=== PATIENT | female | born 1995 | race Caucasian/White ===

== ENCOUNTER 2018-08-06 17:40 | Emergency (ER) | payer BC ==
--- NOTE | 2018-08-06 18:41 | ER Document Report ---
ED ENT - General Chief Complaint: Ear Pain Stated Complaint: EAR PAIN/SORE THROAT Time Seen by Provider: 08/06/18 17:57 Primary Care Provider: JACEK BUTT MD [ACTIVE STAFF] - Follow up as needed Notes: 22-year-old female presented to ED for complaint of cough cold congestion ear pain to the left ear where she has an infected hearing and sore throat. She states that most of his symptoms started last night but it got much worse during the day. She states she took the earring out of her ear yesterday in the ear continued to swell and has been oozing pus. She states she has been squeezed the ear several times and it is just gotten bigger. She is alert and oriented respirations regular and unlabored speaking in full sentences with gait. TRAVEL OUTSIDE OF THE [place] IN LAST 30 DAYS: No - HPI Patient complains to provider of: Ear problem - Infected earrings to the upper outer ear, Throat problem - Sore throat Onset: Yesterday Onset/Duration: Gradual Quality of pain: Sharp, Stabbing Severity: Moderate Pain Level: 4 Context: Recent Illness Location of pain: Ears - Left upper outer ear due to an earring infection Associated symptoms: Ear pain - Infected ear ring, Runny nose, Sinus pain, Sore throat - Related Data Allergies/Adverse Reactions: acetaminophen [From Vicodin] Allergy (Verified 08/06/18 17:44) hydrocodone [From Vicodin] Allergy (Verified 08/06/18 17:44) Past Medical History - General Information source: Patient - Social History Smoking Status: Former Smoker Frequency of alcohol use: Social Drug Abuse: None Lives with: Alone Family History: None Patient has suicidal ideation: No Patient has homicidal ideation: No - Past Medical History Cardiac Medical History: Reports: None Pulmonary Medical History: Reports: Other - Bronchospasms as a child EENT Medical History: Reports: None Neurological Medical History: Reports: None Endocrine Medical History: Reports: None Renal/ Medical History: Reports: None Malignancy Medical History: Reports: None GI Medical History: Reports: None Musculoskeletal Medical History: Reports None Skin Medical History: Reports None Psychiatric Medical History: Reports: Other - A lot of stress Traumatic Medical History: Reports: None Infectious Medical History: Reports: None, Other - Shingles mono chickenpox Past Surgical History: Reports: Hx Adenoidectomy, Hx Appendectomy, Hx Cholecystectomy, Hx Tonsillectomy - Immunizations Immunizations up to date: Yes Review of Systems - Review of Systems Constitutional: No symptoms reported EENT: Ear pain - Infected swollen outer ear due to infected ear ring, Nose congestion, Throat pain Cardiovascular: No symptoms reported Respiratory: No symptoms reported Gastrointestinal: No symptoms reported Genitourinary: No symptoms reported Female Genitourinary: No symptoms reported Musculoskeletal: No symptoms reported Skin: Other - Red inflamed infected left ear due to ear ring Hematologic/Lymphatic: No symptoms reported Neurological/Psychological: No symptoms reported -: Yes All other systems reviewed and negative Physical Exam - Vital signs Vitals: Temp Pulse Resp BP Pulse Ox 98.3 F 86 20 139/82 H 100 08/06/18 17:53 08/06/18 17:53 08/06/18 17:53 08/06/18 17:53 08/06/18 17:53 Interpretation: Normal - General General appearance: Appears well, Alert - HEENT Head: Normocephalic, Atraumatic Eyes: Normal Pupils: PERRL Ears: Pinna tenderness, Tragus tenderness, Other - Erythematous inflamed abscess to the upper outer cartilage from infected ear ring External canal: Normal Tympanic membrane: Normal Sinus: Normal Nasal: Swelling, Clear rhinorrhea Mouth/Lips: Normal Mucous membranes: Normal Pharynx: Erythema, Post nasal drainage, Tonsillar hypertrophy. No: Exudate Neck: Anterior cervical chain, Posterior cervical chain - Respiratory Respiratory status: No respiratory distress Chest status: Nontender Breath sounds: Normal Chest palpation: Normal - Cardiovascular Rhythm: Regular Heart sounds: Normal auscultation Murmur: No - Abdominal Inspection: Normal Distension: No distension Bowel sounds: Normal Tenderness: Nontender Organomegaly: No organomegaly - Back Back: Normal, Nontender - Extremities General upper extremity: Normal inspection, Nontender, Normal color, Normal ROM, Normal temperature General lower extremity: Normal inspection, Nontender, Normal color, Normal ROM, Normal temperature, Normal weight bearing. No: Irma's sign - Neurological Neuro grossly intact: Yes Cognition: Normal Orientation: AAOx4 [place] Coma Scale Eye Opening: Spontaneous [place] Coma Scale Verbal: Oriented [place] Coma Scale Motor: Obeys Commands [place] Coma Scale Total: 15 Speech: Normal Motor strength normal: LUE, RUE, LLE, RLE Sensory: Normal - Psychological Associated symptoms: Normal affect, Normal mood - Skin Skin Temperature: Warm Skin Moisture: Dry Skin Color: Normal Skin irregularity: Abscess Location of irregularity: Ears - Left upper outer ear due to ear ring infection Character of irregularity: Erythematous Irregularity with: Swelling, Tenderness, Inflammation Course - Vital Signs Vital signs: Temp Pulse Resp BP Pulse Ox 98.3 F 86 18 124/79 98 08/06/18 17:53 08/06/18 20:02 08/06/18 20:02 08/06/18 20:02 08/06/18 20:02 Procedures - Incision and Drainage Left upper outer ear Time completed: 18:40 Type: Simple Anesthetic type: Other mL's of anesthetic: 0 Blade size: Other - 18-gauge needle and scissors I&D procedure: Shurclens applied, Sterile dressing applied Incision Method: Incision made with needle Amount/type of drainage: Purulent drainage/blood moderate amount Discharge - Discharge Clinical Impression: infected ear ring site left ear, Strep sore throat Condition: Stable Disposition: HOME, SELF-CARE Additional Instructions: STREP THROAT: Your sore throat is due to the streptococcus germ (strep throat). Strep throat usually makes you feel quite ill with fever and aches, headache, swollen sore throat, and tender bumps under the angles of the jaw. Strep throat requires antibiotic treatment. Although the sore throat may go away by itself, complications such as rheumatic fever, kidney disease, or throat abscess can occur. We usually prescribe antibiotics by mouth. Be sure to take the medicine until it's gone. If you stop early, the strep may come back. If you are vomiting, are severely ill, or can't remember to take pills, we can give you an antibiotic shot. Take acetaminophen or ibuprofen for pain and fever. Sip frequent clear liquids, or use popsicles or ice chips. Anesthetic sprays or lozenges may help. Make sure the air in the room is not too dry. Avoid using decongestants or antihistamines. Call the doctor if there is no improvement in three days, or if you have difficulty breathing, increasing throat pain, high fever, rash, or frequent vomiting. ABSCESS: You have an abscess (boil). This a pus-forming infection, usually due to staph. Some boils may be left to drain on their own, but most require lancing. From the time the tender lump first appears, it may be three or four days before the abscess is ready to rohit. Local heat and rest help at this stage of treatment. An antibiotic may prevent spread of the infection. Once the abscess is opened, packing may be placed into it. This is done so pus is not sealed inside by premature closure of the cavity. The packing will be removed at your follow-up visit or you may be advised to remove it yourself at home. Sometimes this packing must be replaced a few times during healing. The wound will heal with surprisingly little scar. Depending on the size and location of an abscess, healing can take one to four weeks. You may shower and wash the area around the incision site two or three times a day. Antibiotics may be prescribed, but are usually not necessary after an abscess has been drained. If you develop fever, chills, worsening pain, or increasing swelling in the area, call the doctor or return immediately. POST INCISION AND DRAINAGE: You have had an incision made to allow drainage of an abscess. The incision must remain open so that pus and debris can drain from the wound. Keep a bulky dressing over the area. Replace it if it becomes saturated with blood or pus. Do not disturb the packing (if present). You may shower and cleanse the area with gentle soap and warm water two or three times a day. Local warmth may be soothing, and may promote faster healing. Return if you develop high fever or chills, or if you note spreading redness, increasing swelling, or increasing tenderness. CEPHALEXIN: The antibiotic you've been prescribed is a member of the cephalosporin class. This type of antibiotic covers a wide variety of infections, including those of the skin, lungs, and urinary tract. It's useful for staph infections. This antibiotic is slightly similar to the penicillin family. In rare cases, a person who is allergic to penicillin will also be allergic to this medication. If you have had a severe allergic reaction to penicillin, and have not taken this antibiotic since that time, notify your doctor. Antibiotics which cover many germs ("broad spectrum" antibiotics) are more likely to cause diarrhea or "yeast" infections. Women prone to vaginal yeast problems may suffer an attack after taking this antibiotic. In infants, oral thrush (white spots "stuck" on the cheek) or yeast diaper rash may result. See your doctor if these problems occur. Call at once if you develop itching, hives, shortness of breath, or lightheadedness. TRIMETHOPRIM-SULFA: You have been given a prescription for trimethoprim-sulfa (TMS, Septra, Bactrim). This is a combination antibiotic of the sulfa class, often used for urinary tract infections, middle ear infections, bronchitis, shigella intestinal infection, and Pneumocystis pneumonia. TMS is usually well-tolerated. Occasional side effects include nausea and decreased appetite. Septra is not recommended for infants less than two months of age. Do not take this medication if you have experienced severe side effects or allergy to sulfa medicine. You should stop this medicine at once and contact your physician if you develop any rash, joint pain, shortness of breath, bruising, or jaundice (yellow color in the skin), or if you develop any other new or unusual symptoms. Please be sure to take your antibiotics until they are completed. Infected wound to your left ear please do not put any earrings back in this year and to your wounds are completely healed. Please irrigate this earring site tonight before you go to bed, tomorrow morning when you get up, tomorrow night before you go to bed, and the next morning. Please wash the site frequently. Please dressed with bacitracin and gauze and paper tape to ensure that the site continues to drain. Is follow-up with your primary doctor in 24-48 hours to ensure this site is healing properly. Antibiotics have given you for the infected ear will also take care of your strep throat. Try gargling with warm salt and soda solution and use Chloraseptic spray for the discomfort of your throat. FOLLOW-UP CARE: If you have been referred to a physician for follow-up care, call the physicians office for an appointment as you were instructed or within the next two days. If you experience worsening or a significant change in your symptoms, notify the physician immediately or return to the Emergency Department at any time for re-evaluation. Prescriptions: Cephalexin Monohydrate [Keflex 500 mg Capsule] 500 mg PO QID #20 capsule Sulfamethoxazole/Trimethoprim [Bactrim Ds Tablet] 1 each PO BID #20 tablet Forms: Elevated Blood Pressure Referrals: JACEK BUTT MD [ACTIVE STAFF] - Follow up as needed
[2018-08-06] MEDS ORDERED: SULFAMETHOXAZOLE/TRIMETHOPRIM 800-160 MG TABLET PO ONE (18:56)
[2018-08-06] MEDS ORDERED: CEPHALEXIN 500 MG CAPSULE PO ONE (18:56)
[2018-08-06 20:03] VITALS: BP 124/79
== END 2018-08-06 19:59 | disposition home or self-care (01) ==
LOC: ER 17:40
DX: H60.02 Abscess of left external ear (principal); J02.0 Streptococcal pharyngitis; J34.89 Other specified disorders of nose and nasal sinuses; R09.81 Nasal congestion; R09.82 Postnasal drip; Z88.6 Allergy status to analgesic agent; Z88.5 Allergy status to narcotic agent; Z87.891 Personal history of nicotine dependence
CPT/HCPCS: 87070; 87075; 87077; 87205; 87880; 99283

== ENCOUNTER → 2018-10-01 | Outpatient (CLI) | payer BC ==
--- NOTE | 2018-10-02 09:14 | RADIOLOGY REPORT (SQ) ---
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 TECHNIQUE: Multiplanar imaging includes noncontrasted T1, T2, FLAIR, diffusion with ADC map and post gadolinium contrast T1 sequences. Additional thin section coronal and sagittal T2, coronal and sagittal T1 pre and post contrasted imag es through the pituitary fossa. Images stored on PACS. CONTRAST TYPE AND DOSE: 20 mL Dotarem. RENAL FUNCTION: Not indicated. ACR Type II contrast agent associated with few, if any, unconfounded cases of NSF LIMITATIONS: None. FINDINGS: PITUITARY FOSSA: The pituitary gland is normal in size, 13 mm AP x 14 mm transverse by 7 m m craniocaudad. Midline infundibulum. Normal posterior pituitary bright spot. No abnormal contrast enhancement. Normal cavernous sinuses and suprasellar cistern. Normal optic chiasm. CSF SPACES: Normal in size and contour. No hemorrhage. CEREBRUM: Sulci and gyri normal in size and contour. Normal white matter signal on FLAIR imaging. No evidence of hemorrhage, mass, or extraaxial fluid collection. No abnormal enhancement post contrast. POSTERIOR FOSSA: No signal alteration. No hemorrhage. No edema, masses, or mass effect. Internal jefry tory canals, cerebellopontine angles, mastoids normal. No enhancing lesions. No abnormal enhancement post contrast. DIFFUSION IMAGING: Negative for acute or subacute infarction. ORBITS: No masses. Globes normal. PARANASAL SINUSES: No fluid levels. Mucosa normal. OTHER: No other significant finding. IMPRESSION: NORMAL MRI OF THE BRAIN AND PITUITARY WITHOUT AND WITH INTRAVENOUS GADOLINIUM CONTRAST. EVIDENCE OF ACUTE STROKE: NO. TECHNICAL DOCUMENTATION: JOB ID: [id number]- All Rights Reserved Reading location - IP/workstation name: [email or web address]
== END ==
LOC: RAD 19:46
PROVIDERS: ATTEND Family Medicine
DX: E22.1 Hyperprolactinemia (principal)
CPT/HCPCS: 70553; A9576

== ENCOUNTER 2020-01-12 18:23 | Emergency (ER) | payer BC ==
[2020-01-12] MEDS ORDERED: ONDANSETRON HCL INJ/PF 4 MG/2 ML SDV IV ONE (19:06)
[2020-01-12] MEDS ORDERED: NORMAL SALINE 1000 ML 1,000 ML IV ONE (19:06)
--- NOTE | 2020-01-12 19:08 | ER Document Report ---
ED GI/ - General Chief Complaint: Vomiting Stated Complaint: COUGH,VOMITING Time Seen by Provider: 01/12/20 19:03 Primary Care Provider: DESHAUN HERNANDEZ DO [Primary Care Provider] - Follow up as needed Information source: Patient Notes: This a 24-year-old female presented to the emergency room today stating that she had had nausea vomiting for about 6 days she has not been able to hold anything down. She has mild upper abdominal cramping from the nausea discomfort. TRAVEL OUTSIDE OF THE [place] IN LAST 30 DAYS: No - HPI Patient complains to provider of: Vomiting Onset: Other - For 6 days Timing/Duration: Persistent, Waxing and waning Quality of pain: Achy Severity at maximum: Moderate - Related Data Allergies/Adverse Reactions: acetaminophen [From Vicodin] Allergy (Verified 08/06/18 17:44) hydrocodone [From Vicodin] Allergy (Verified 08/06/18 17:44) Past Medical History - General Information source: Patient - Social History Smoking Status: Never Smoker Cigarette use (# per day): No Frequency of alcohol use: None Drug Abuse: None Lives with: Family Family History: None Past Surgical History: Reports: Hx Adenoidectomy, Hx Appendectomy, Hx Cholecystectomy, Hx Tonsillectomy - Immunizations Immunizations up to date: Yes Review of Systems - Review of Systems Constitutional: No symptoms reported EENT: No symptoms reported Cardiovascular: No symptoms reported Respiratory: No symptoms reported Gastrointestinal: Other - Nausea vomiting Genitourinary: No symptoms reported Female Genitourinary: No symptoms reported Musculoskeletal: No symptoms reported Skin: No symptoms reported Hematologic/Lymphatic: No symptoms reported Neurological/Psychological: No symptoms reported Physical Exam - Vital signs Vitals: Temp Pulse Resp BP Pulse Ox 98.9 F 82 16 111/74 100 01/12/20 18:47 01/12/20 18:47 01/12/20 18:47 01/12/20 18:47 01/12/20 18:47 Interpretation: Normal - General General appearance: Appears well, Alert - HEENT Head: Normocephalic, Atraumatic Eyes: Normal Pupils: PERRL - Respiratory Respiratory status: No respiratory distress Chest status: Nontender Breath sounds: Normal Chest palpation: Normal - Cardiovascular Rhythm: Regular Heart sounds: Normal auscultation Murmur: No - Abdominal Inspection: Normal Distension: No distension Bowel sounds: Normal Tenderness: Nontender Organomegaly: No organomegaly - Back Back: Normal, Nontender - Extremities General upper extremity: Normal inspection, Nontender, Normal color, Normal ROM, Normal temperature General lower extremity: Normal inspection, Nontender, Normal color, Normal ROM, Normal temperature, Normal weight bearing. No: Irma's sign - Neurological Neuro grossly intact: Yes Cognition: Normal Orientation: AAOx4 [place] Coma Scale Eye Opening: Spontaneous [place] Coma Scale Verbal: Oriented [place] Coma Scale Motor: Obeys Commands [place] Coma Scale Total: 15 Speech: Normal Motor strength normal: LUE, RUE, LLE, RLE Sensory: Normal - Psychological Associated symptoms: Normal affect, Normal mood - Skin Skin Temperature: Warm Skin Moisture: Dry Skin Color: Normal Course - Re-evaluation Re-evalutation: 01/13/20 00:06 Patient had a conversation about the fact that she is she had a pretty flat affect actually indicating that she was not necessarily surprised I had asked her why she did mention that to me earlier she has no nausea currently she is feeling little bit better here in the department she will be following up with [facility] will provide her the health department information we will be treating her BV patient return to the emergency room for any change worsening condition. 01/13/20 00:08 Is no bleeding no spotting no cramping no lower abdominal discomfort at this point time she did have some upper abdominal cramping. - Vital Signs Vital signs: Temp Pulse Resp BP Pulse Ox 98.9 F 82 16 111/74 100 01/12/20 18:47 01/12/20 18:47 01/12/20 18:47 01/12/20 18:47 01/12/20 18:47 - Laboratory Result Diagrams: 01/12/20 20:50 01/12/20 20:50 Laboratory results interpreted by me: 01/12/20 01/12/20 20:50 20:50 WBC 14.4 H Absolute Neuts (auto) 9.4 H Sodium 133.0 L BUN 2 L Creatinine 0.48 L Total Bilirubin 2.1 H Beta HCG, Quant 46697.00 H Labs- All tests 24 hr 01/12/20 01/12/20 01/12/20 20:50 20:50 22:00 WBC 14.4 H RBC 4.94 Hgb 15.5 Hct 45.3 MCV 92 MCH 31.4 MCHC 34.3 RDW 12.7 Plt Count 313 Lymph % (Auto) 24.4 Hill % (Auto) 4.9 Eos % (Auto) 4.2 Baso % (Auto) 1.0 Absolute Neuts (auto) 9.4 H Absolute Lymphs (auto) 3.5 Absolute Monos (auto) 0.7 Absolute Eos (auto) 0.6 Absolute Basos (auto) 0.2 Seg Neutrophils % 65.5 Sodium 133.0 L Potassium 3.7 Chloride 105 Carbon Dioxide 22 Anion Gap 6 BUN 2 L Creatinine 0.48 L Est GFR ( Amer) > 60 Est GFR (MDRD) Non-Af > 60 Glucose 89 Calcium 9.4 Total Bilirubin 2.1 H Direct Bilirubin 0.0 Neonat Total Bilirubin Not Reportable Neonat Direct Bilirubin Not Reportable Neonat Indirect Bili Not Reportable AST 20 ALT 11 Alkaline Phosphatase 65 Total Protein 7.3 Albumin 4.3 Lipase 80.4 Beta HCG, Quant 15861.00 H Total Beta HCG POSITIVE Epi Cells (Wet Prep) 3+ EPITHELIALS SEEN Bacteria (Wet Prep) 4+ BACTERIA SEEN Trichomonas (Wet Prep) NO TRICHOMONAS SEEN Vaginal WBC 3+ WBCS SEEN Vaginal RBC FEW RBCS SEEN Vaginal Yeast NO YEAST SEEN Discharge - Discharge Clinical Impression: Bacterial vaginosis in Qualifiers: Weeks of gestation: less than 8 weeks Qualified Code(s): Z3A.01 - Less than 8 weeks gestation of Condition: Good Disposition: HOME, SELF-CARE Instructions: ([facility]), Vaginosis, Bacterial ([facility]) Prescriptions: Miconazole Nitrate [Monistat 7] 45 gm VG QHS 7 Days #7 cream.appl Vit,Calc76/Iron/Folic [Prenatabs Rx Tablet] 1 each PO QAM #30 tablet Metoclopramide HCl [Reglan 10 mg Tablet] 1 - 2 tab PO ASDIR PRN #25 tablet PRN Reason: Referrals: DESHAUN HERNANDEZ DO [Primary Care Provider] - Follow up as needed
[2020-01-12 21:07] LABS: ABSOLUTE BASOPHILS # (AUTO) 0.2 10^3/uL (0.0-0.2); ABSOLUTE EOSINOPHILS # (AUTO) 0.6 10^3/uL (0.0-0.6); ABSOLUTE LYMPHOCYTES (AUTO) 3.5 10^3/uL (0.5-4.7); ABSOLUTE MONOCYTES (AUTO) 0.7 10^3/uL (0.1-1.4); ABSOLUTE NEUT (AUTO) 9.4 10^3/uL (1.7-8.2); EOSINOPHILS % (AUTO) 4.2 % (0-6); HEMATOCRIT 45.3 % (36.0-47.0); HEMOGLOBIN 15.5 g/dL (12.0-15.5); LYMPHOCYTES % (AUTO) 24.4 % (13-45); MEAN CORPUSCULAR HEMOGLOBIN 31.4 pg (27.0-33.4); MEAN CORPUSCULAR HGB CONC 34.3 g/dL (32.0-36.0); MEAN CORPUSCULAR VOLUME 92 fl (80-97); MONOCYTES % (AUTO) 4.9 % (3-13); PLATELET COUNT 313 10^3/uL (150-450); RED BLOOD COUNT 4.94 10^6/uL (3.72-5.28); RED CELL DISTRIBUTION WIDTH 12.7 % (11.5-14.0); SEGMENTED NEUTROPHILS % (AUTO) 65.5 % (42-78); TOTAL CELLS COUNTED % (AUTO) 100 %; WHITE BLOOD COUNT 14.4 10^3/uL (4.0-10.5)
[2020-01-12 21:26] LABS: ALBUMIN 4.3 g/dL (3.5-5.0); ALKALINE PHOSPHATASE 65 U/L (38-126); ANION GAP 6 (5-19); ASPARTATE AMINO TRANSFERASE 20 U/L (14-36); BILIRUBIN,TOTAL 2.1 mg/dL (0.2-1.3); BLOOD UREA NITROGEN 2 mg/dL (7-20); CALCIUM 9.4 mg/dL (8.4-10.2); CARBON DIOXIDE 22 mmol/L (22-30); CHLORIDE 105 mmol/L (98-107); GLUCOSE 89 mg/dL (75-110); POTASSIUM 3.7 mmol/L (3.6-5.0); TOTAL PROTEIN 7.3 g/dL (6.3-8.2)
[2020-01-12 22:27] LABS: BACTERIA (WET MOUNT) 4+ BACTERIA SEEN; EPITHELIALS (WET MOUNT) 3+ EPITHELIALS SEEN; RBCS (WET MOUNT) FEW RBCS SEEN; T.VAGINALIS (WET MOUNT) NO TRICHOMONAS SEEN; WBCS (WET MOUNT) 3+ WBCS SEEN; YEAST (WET MOUNT) NO YEAST SEEN
[2020-01-12 23:53] LABS: CHLAM PCR NOT DETECTED (NOT DETECT)
[2020-01-13 00:51] VITALS: BP 102/63
== END 2020-01-13 00:40 | disposition home or self-care (01) ==
LOC: ER 18:23
DX: O23.591 Infection of other part of genital tract in pregnancy, first trimester (principal); B96.89 Other specified bacterial agents as the cause of diseases classified elsewhere; O21.9 Vomiting of pregnancy, unspecified; O26.891 Other specified pregnancy related conditions, first trimester; R10.10 Upper abdominal pain, unspecified; Z88.8 Allergy status to other drugs, medicaments and biological substances; Z88.6 Allergy status to analgesic agent; Z88.5 Allergy status to narcotic agent; Z90.49 Acquired absence of other specified parts of digestive tract; Z3A.01 Less than 8 weeks gestation of pregnancy
CPT/HCPCS: 99284; 96361; 96374; 36415; 87210; 84702; 83690; 85025; 80053; 87491; 87591; J2405; J7030

== ENCOUNTER 2020-03-27 06:55 | Emergency (ER) | payer BC ==
--- NOTE | 2020-03-27 08:12 | ER Document Report ---
ED General - General Chief Complaint: Nausea/Vomiting Stated Complaint: ABDOMINAL PAIN/CRAMPING/17WEEKS PREG Time Seen by Provider: 03/27/20 08:06 Primary Care Provider: DESHAUN NUÑEZ DO [NO LOCAL MD] - Follow up as needed GARCÍA MONTOYA MD [ACTIVE STAFF] - Follow up tomorrow TRAVEL OUTSIDE OF THE [place] 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 Patient states that she has had some morning sickness with her , she typically has some nausea with her history of her migraines but her has exacerbated it. Denies worst headache of life. States she has not been drinking as much in the last couple of days because of her increased nausea. Patient is also complaining she is having pain in her upper thigh on the right which shoots down to her legs, she is concerned that she has a blood clot. Patient states this is her first , has no clotting disorders, no factor V, no recent periods of immobilization surgery or chemotherapy cancer treatments. patient denies any traumas or recent falls. She follows with women's health associate for [facility] and her primary care provider is Dr. Nuñez. Denies fevers, chills, chest pain,palpitations, shortness of breath, dyspnea, diarrhea, hematuria,blurred vision, double vision, loss of vision, speech changes, LH, dizziness, syncope, headaches, wheezing, ST, URI, neck pain, weakness, bowel or bladder dysfunction, saddle anesthesia, numbness or tingling in bilateral upper or lower extremities equally, muscle paralysis, weakness in bilateral upper or lower extremities equally or rash. D enies IV drug use. MEDICATIONS: I agree with the patient medications as charted by the RN. ALLERGIES: I agree with the allergies as charted by the RN. PAST MEDICAL HISTORY/PAST SURGICAL HISTORY: Reviewed and agree as charted by RN. SOCIAL HISTORY: Reviewed and agree as charted by RN. FAMILY HISTORY: No significant familial comorbid conditions directly related to patient complaint EXAM: Reviewed vital signs as charted by RN. PHYSICAL EXAMINATION: GENERAL: Well-appearing, well-nourished and in no acute distress. HEAD: Atraumatic, normocephalic. EYES: Pupils equal round and reactive to light, extraocular movements intact, conjunctiva are normal. ENT: Nares patent, oropharynx clear without exudates. Moist mucous membranes. NECK: Normal range of motion, supple without lymphadenopathy LUNGS: Breath sounds clear to auscultation bilaterally and equal. No wheezes rales or rhonchi. HEART: Regular rate and rhythm without murmurs ABDOMEN: Soft, mild right upper quadrant tenderness, nondistended abdomen. No guarding, no rebound. No masses appreciated. no cva tenderness appreciated. Female : deferred Musculoskeletal: Normal range of motion, no pitting or edema. No cyanosis. Homans sign negative bilaterally. Distal pulses +2 bilaterally equally. right hip with tenderness with abduction, adduction, flexion. dtr + 2 bilaterally and equally in BLE. full motor and sensory function. normal gait. cap refill < 3 seconds. distal pulses + 2 in BLE. lower back examination wnl. No erythema, warmth to touch, deformity, crepitus or obvious asymmetry of the affected leg c ompared to other of hips equally. NEUROLOGICAL: Cranial nerves grossly intact. Normal speech, normal gait. Normal sensory, motor exams PSYCH: Normal mood, normal affect. SKIN: Warm, Dry, normal turgor, no rashes or lesions noted. Dictation was performed using [employer] recognition software - Related Data Allergies/Adverse Reactions: cat dander Allergy (Intermediate, Verified 03/27/20 07:10) banana Allergy (Mild, Verified 03/27/20 07:10) insect venom Allergy (Mild, Verified 03/27/20 07:10) coffee (Coffea arabica) Adverse Reaction (Verified 03/27/20 07:10) Home Medications: vitamin Past Medical History - General Information source: Patient - Social History Smoking Status: Former Smoker Chew tobacco use (# tins/day): No Frequency of alcohol use: None Drug Abuse: None Family History: None Patient has homicidal ideation: No Past Surgical History: Reports: Hx Adenoidectomy, Hx Appendectomy, Hx Cholecystectomy, Hx Tonsillectomy - Immunizations Immunizations up to date: Yes Review of Systems - Review of Systems Constitutional: No symptoms reported EENT: No symptoms reported Cardiovascular: No symptoms reported Respiratory: No symptoms reported Gastrointestinal: See HPI Genitourinary: No symptoms reported Female Genitourinary: No symptoms reported Musculoskeletal: See HPI Skin: No symptoms reported Hematologic/Lymphatic: No symptoms reported Neurological/Psychological: No symptoms reported Physical Exam - Vital signs Vitals: Temp Pulse Resp BP Pulse Ox 98.1 F 82 20 109/66 99 03/27/20 07:02 03/27/20 07:02 03/27/20 07:02 03/27/20 07:02 03/27/20 07:02 Course - Re-evaluation Re-evalutation: 03/27/20 13:11 Afebrile vital stable in restraints. Nurses notes reviewed. CBC negative for leukocytosis or anemia, CMP negative for hepatic or renal dysfunction. No electrolyte disturbances. Lipase unremarkable. Ultrasound right upper quadrant unremarkable, transvaginal ultrasound. heart rate 141, 18 weeks 3 days. venous ultrasound of right lower extremity negative. Quant hCG 78671. Patient denies any vaginal bleeding or vaginal discharge. patient given IV hydration with Benadryl and Reglan for her nausea and for help manage her migraine. Patient denies worst headache of life, states that is mild migraine, and very similar to her previous migraines. urinalysis shows trace leukoesterase, this could be related to contamination, nitrates were negative. No hematuria. No proteinuria. Will obtain urine culture. If positive will treat per standard of care. Advised to follow-up with [facility], increase oral hydration. Advised to follow-up with [facility] within the next 24 to 48 hours. After performing a Medical Screening Examination, I estimate there is LOW risk for ACUTE APPENDICITIS, BOWEL OBSTRUCTION, ACUTE CHOLECYSTITIS, PERFORATED DIVERTICULITIS, INCARCERATED HERNIA, PANCREATITIS, PELVIC INFLAMMATORY DISEASE, PERFORATED ULCER, ECTOPIC , or TUBO-OVARIAN ABSCESS, thus I consider the discharge disposition reasonable. Also, there is no evidence or peritonitis, sepsis, or toxicity. I have reevaluated this patient multiple times and no significant life threatening changes are noted. The patient and I have discussed the diagnosis and risks, and we agree with discharging home with close follow-up with the understanding that symptoms and presentations can change. We also discussed returning to the Emergency Department immediately if new or worsening symptoms occur. We have discussed the symptoms which are most concerning (e.g., bloody stool, fever, changing or worsening pain, vomiting) that necessitate immediate return. 03/27/20 14:16 - Vital Signs Vital signs: Temp Pulse Resp BP Pulse Ox 98.1 F 82 18 94/52 L 100 03/27/20 07:05 03/27/20 07:02 03/27/20 09:11 03/27/20 11:00 03/27/20 11:00 - Laboratory Result Diagrams: 03/27/20 08:03 03/27/20 08:03 Laboratory results interpreted by me: 03/27/20 03/27/20 03/27/20 08:03 08:03 08:03 WBC 13.9 H Absolute Neuts (auto) 10.3 H Carbon Dioxide 21 L BUN 4 L Creatinine 0.43 L Beta HCG, Quant 27441.00 H Ur Leukocyte Esterase TRACE H Urine Ascorbic Acid 20 H Discharge - Discharge Clinical Impression: , Nausea and vomiting Condition: Stable Disposition: HOME, SELF-CARE Instructions: Antinausea Medication ([facility]), Intravenous (IV) Fluids ([facility]), ([facility]), Reglan ([facility]), Vomiting ([facility]) Additional Instructions: All of your labs and ultrasounds were negative today. Your baby is doing well today. your venous Doppler was negative for DVT. Likely your hip pain is related to your history of your leg discrepancy with your baby growing in your uterus. you were given IV fluids, Benadryl and Reglan for the nausea and vomiting and to manage her headache. Please follow-up with your [facility] [employer] [facility] tomorrow for reevaluation. Please take Reglan as needed for nausea and. Follow a bland diet. Drink Pedialyte or Gatorade to help with rehydration. If you experience any worsening symptoms such as bowel or bladder dysfunction, numbness or tingling in your pelvic area, vaginal bleeding, abdominal pain, fever, please return to the emergency room Return immediately for any new or worsening symptoms. Follow up with primary care provider, call tomorrow to make followup appointment. Prescriptions: Metoclopramide HCl [Reglan 10 mg Tablet] 1 - 2 tab PO ASDIR PRN #12 tablet PRN Reason: Referrals: DESHAUN NUÑEZ DO [NO LOCAL MD] - Follow up as needed GARCÍA MONTOYA MD [ACTIVE STAFF] - Follow up tomorrow
[2020-03-27] MEDS ORDERED: METOCLOPRAMIDE HCL INJ/PF 10 MG/2 ML SDV IV ONE (08:44)
[2020-03-27] MEDS ORDERED: NORMAL SALINE 1000 ML 1,000 ML IV ONE (08:44)
[2020-03-27] MEDS ORDERED: DIPHENHYDRAMINE HCL 50 MG/ML VIAL IV ONE (08:44)
[2020-03-27 08:57] LABS: ABSOLUTE BASOPHILS # (AUTO) 0.1 10^3/uL (0.0-0.2); ABSOLUTE EOSINOPHILS # (AUTO) 0.1 10^3/uL (0.0-0.6); ABSOLUTE MONOCYTES (AUTO) 0.5 10^3/uL (0.1-1.4); ABSOLUTE NEUT (AUTO) 10.3 10^3/uL (1.7-8.2); BASOPHILS % (AUTO) 0.5 % (0-2); EOSINOPHILS % (AUTO) 0.6 % (0-6); HEMOGLOBIN 12.5 g/dL (12.0-15.5); LYMPHOCYTES % (AUTO) 21.7 % (13-45); MEAN CORPUSCULAR HEMOGLOBIN 30.8 pg (27.0-33.4); MEAN CORPUSCULAR HGB CONC 34.7 g/dL (32.0-36.0); MEAN CORPUSCULAR VOLUME 89 fl (80-97); MONOCYTES % (AUTO) 3.6 % (3-13); PLATELET COUNT 231 10^3/uL (150-450); RED BLOOD COUNT 4.06 10^6/uL (3.72-5.28); RED CELL DISTRIBUTION WIDTH 12.6 % (11.5-14.0); SEGMENTED NEUTROPHILS % (AUTO) 73.6 % (42-78); TOTAL CELLS COUNTED % (AUTO) 100 %; WHITE BLOOD COUNT 13.9 10^3/uL (4.0-10.5)
[2020-03-27 09:02] LABS: APPEARANCE,URINE SLIGHTLY-CLOUDY; BILIRUBIN,URINE NEGATIVE (NEGATIVE); COLOR,URINE YELLOW; GLUCOSE, URINE NEGATIVE (NEGATIVE); KETONES,URINE NEGATIVE (NEGATIVE); LEUKOCYTE ESTERASE,URINE TRACE (NEGATIVE); NITRITE,URINE NEGATIVE (NEGATIVE); PROTEIN,URINE NEGATIVE (NEGATIVE); URINE SPECIFIC GRAVITY 1.016; UROBILINOGEN,URINE NEGATIVE mg/dL (<2.0)
[2020-03-27 09:11] LABS: ALBUMIN 3.8 g/dL (3.5-5.0); ALKALINE PHOSPHATASE 55 U/L (38-126); ANION GAP 12 (5-19); ASPARTATE AMINO TRANSFERASE 17 U/L (14-36); BILIRUBIN,DIRECT 0.2 mg/dL (0.0-0.4); BILIRUBIN,TOTAL 0.8 mg/dL (0.2-1.3); BLOOD UREA NITROGEN 4 mg/dL (7-20); CALCIUM 9.2 mg/dL (8.4-10.2); CARBON DIOXIDE 21 mmol/L (22-30); CHLORIDE 107 mmol/L (98-107); GLUCOSE 89 mg/dL (75-110); NEONATAL BILIRUBIN RESULT 0.7 mg/dL (0.1-1.1); POTASSIUM 4.1 mmol/L (3.6-5.0); TOTAL PROTEIN 6.5 g/dL (6.3-8.2)
--- NOTE | 2020-03-27 10:44 | RADIOLOGY REPORT (SQ) ---
EXAM DESCRIPTION: U/S ABDOMEN LIMITED W/O DOP IMAGES COMPLETED DATE/TIME: 03/27/2020 10:25 am REASON FOR STUDY: RUQ, RLQ abd pain, 17 weeks COMPARISON: None. TECHNIQUE: Dynamic and static grayscale images acquired of the abdomen and recorded on PACS. Additio nal selected color Doppler and spectral images recorded. LIMITATIONS: None. FINDINGS: PANCREAS: No masses. Visualized pancreatic duct normal caliber. LIVER: No masses. Echotexture normal. LIVER VASCULATURE: Normal directional flow of the main portal vein and hepatic veins. GALLBLADDER: Surgically absent. ULTRASOUND-DETECTED GONZALEZ'S SIGN: Negative. INTRAHEPATIC DUCTS AND COMMON DUCT: CBD and intrahepatic ducts normal caliber. No filling defects. INFERIOR VENA CAVA: Normal flow. AORTA: No aneurysm. RIGHT KIDNEY: Normal size. Normal echogenicity. No solid or suspicious masses. No hydronephrosis. No calcifications. PERITONEAL AND RIGHT PLEURAL SPACE: No ascites or effusions. OTHER: No other significant findings. IMPRESSION: NORMAL RIGHT UPPER QUADRANT ULTRASOUND. TECHNICAL DOCUMENTATION: JOB ID: [id number] 2010 [employer]- All Rights Reserved Reading location - IP/workstation name: [email or web address]
--- NOTE | 2020-03-27 10:47 | RADIOLOGY REPORT (SQ) ---
EXAM DESCRIPTION: U/S OB 14+ TRNABD 1GES W/O DOP IMAGES COMPLETED DATE/TIME: 03/27/2020 10:25 am REASON FOR STUDY: RUQ, RLQ abd pain, 17 weeks COMPARISON: None. TECHNIQUE: Limited transabdominal grayscale ultrasound for evaluation of specific requested obstetri williams parameters. LIMITATIONS: None. FINDINGS: EGA: 18 week 3 day. KARI: 08/25/2020. EFW: 248 g. CERVICAL LENGTH: 2.9 cm. Closed. LVP: 3.6 x 4.7 cm. FHR: 141 beats per minute. PRESENTATION: Cephalic. PLACENTA: Anterior ANATOMY: Not assessed OTHER: No other significant findings. IMPRESSION: LIMITED OBSTETRICAL ULTRASOUND WITH MEASURED PARAMETERS DELINEATED ABOVE. Trimester of : Second trimester - 13 weeks 1 day to 27 weeks 6 days. TECHNICAL DOCUMENTATION: JOB ID: [id number] 2010 [employer]- All Rights Reserved Reading location - IP/workstation name: [email or web address]
[2020-03-27] MEDS ORDERED: DIPHENHYDRAMINE HCL 50 MG/ML VIAL ONE (10:56)
[2020-03-27] MEDS ORDERED: METOCLOPRAMIDE HCL INJ/PF 10 MG/2 ML SDV ONE (10:56)
--- NOTE | 2020-03-27 13:24 | RADIOLOGY REPORT (SQ) ---
EXAM DESCRIPTION: VENOUS UNILATERAL LOWER IMAGES COMPLETED DATE/TIME: 03/27/2020 1:08 pm REASON FOR STUDY: right leg pain, sudden onset, 17 weeks COMPARISON: None. TECHNIQUE: Dynamic and static castrejon scale and color images acquired of the right leg venous system. S elected spectral images acquired with additional compression and augmentation maneuvers. The contrala teral common femoral vein and saphenofemoral junction were also imaged. Images stored on PACS. LIMITATIONS: None. FINDINGS: COMMON FEMORAL: Normal phasicity, compression and augmentation. No visualized echogenic ma terial on castrejon scale. No defects on color images. FEMORAL: Normal compression and augmentation. No visualized echogenic material on castrejon scale. No defe cts on color images. POPLITEAL: Normal compression, augmentation. No visualized echogenic material on castrejon scale. No defec ts on color images. CALF VESSELS: Normal compression, augmentation. No visualized echogenic material on castrejon scale. No de fects on color images. GSV and SSV: Normal compression, augmentation. No visualized echogenic material on castrejon scale. No def ects on color images. ANY DEEP VENOUS INSUFFICIENCY: No. ANY EVIDENCE OF POPLITEAL CYST: No. OTHER: No other significant finding. CONTRALATERAL COMMON FEMORAL VEIN AND SAPHENOFEMORAL JUNCTION: Normal phasicity, compression and augmentation. No visualized echogenic material on castrejon scale. No de fects on color images. IMPRESSION: NO EVIDENCE DVT OR SVT IN THE RIGHT LEG. TECHNICAL DOCUMENTATION: JOB ID: [id number] 2010 [employer]- All Rights Reserved Reading location - IP/workstation name: [email or web address]
[2020-03-27 13:57] VITALS: BP 94/55
== END 2020-03-27 13:57 | disposition home or self-care (01) ==
LOC: ER 06:55
DX: O21.9 Vomiting of pregnancy, unspecified (principal); O26.92 Pregnancy related conditions, unspecified, second trimester; R10.9 Unspecified abdominal pain; Z3A.17 17 weeks gestation of pregnancy
CPT/HCPCS: 99285; 96361; 96374; 96375; 36415; 87086; 84702; 83690; 85025; 87088; 80053; 81001; 93971; 76805; 76705; J1200; J2765; J7030